=== PATIENT | female | born 1965 | race Caucasian/White ===

== ENCOUNTER 2017-02-22 14:36 | Emergency (ER) | payer SELFPAY ==
[~2017-02-22] VITALS: Ht 170.2 cm; Wt 85.7 kg
[2017-02-22 14:40] VITALS: BP 155/79
== END 2017-02-22 14:50 | disposition left against medical advice (07) ==
LOC: ER 14:36
DX: R21 Rash and other nonspecific skin eruption (principal); F12.10 Cannabis abuse, uncomplicated; F17.200 Nicotine dependence, unspecified, uncomplicated; Z53.21 Procedure and treatment not carried out due to patient leaving prior to being seen by health care provider